=== PATIENT | female | born 1995 ===

== ENCOUNTER 2021-06-15 18:53 | Emergency (ER) | payer SELFPAY ==
[~2021-06-15] VITALS: Ht 167.6 cm; Wt 50.7 kg
[2021-06-15 19:21] VITALS: BP 118/70
[2021-06-15 20:13] LABS: ALANINE AMINOTRANSFERASE 43 U/L (12-78); ALBUMIN 3.3 g/dL (3.4-5.0); ANION GAP 8 mmol/L (5-15); CALCIUM 9.2 mg/dL (8.5-10.1); CHLORIDE 107 mmol/L (98-107); CREATININE 0.53 mg/dL (0.55-1.02)
[2021-06-15 20:14] LABS: BASOPHILS % (AUTO) 0 % (0-1); EOSINOPHILS % (AUTO) 0 % (1-7); LYMPHOCYTES % (AUTO) 41 % (22-44); MEAN CORPUSCULAR HEMOGLOBIN 29.5 pg (27.0-34.8); MEAN CORPUSCULAR HGB CONC 33.2 g/dL (32.4-35.8); MEAN PLATELET VOLUME 10.6 fL (7.4-10.4); MONOCYTES % (AUTO) 8 % (2-9); NEUTROPHILS % (AUTO) 51 % (42-75); PLATELET COUNT 156 x10^3/uL (130-400); RED BLOOD COUNT 4.25 x10^6/uL (3.82-5.3); RED CELL DISTRIBUTION WIDTH 13.9 % (9.6-15.2)
[2021-06-15 20:25] LABS: MICROSCOPIC INDICATED
[2021-06-15 20:30] LABS: ALKALINE PHOSPHATASE 54 U/L (45-117); BILIRUBIN,TOTAL 0.3 mg/dL (0.2-1.0); TOTAL PROTEIN 7.7 g/dL (6.4-8.2)
--- NOTE | 2021-06-15 22:25 | NUR ---
conservation coordinator: patient to room from lobby.
--- NOTE | 2021-06-15 22:30 | NUR ---
CONFIRMED POSITIVE COVID TUESDAY. NEW ONSET SOB x 2 days. PT 8 WEEKS
[2021-06-15 23:04] LABS: MICROSCOPIC INDICATED
--- NOTE | 2021-06-15 23:04 | NUR ---
report to rach mcgarry
== END 2021-06-15 23:56 | disposition home or self-care (01) ==
LOC: ED 19:00
DX: O98.511 Other viral diseases complicating pregnancy, first trimester (principal); U07.1 COVID-19; J06.9 Acute upper respiratory infection, unspecified; N30.00 Acute cystitis without hematuria; Z3A.11 11 weeks gestation of pregnancy
CPT/HCPCS: 36415; 71045; 76801; 80053; 81001; 84702; 85025; 87086; 93005; 99285